=== PATIENT | male | born 1980 | race African-American/Black ===

== ENCOUNTER 2017-04-08 13:10 | Emergency (ER) | payer SELFPAY ==
[~2017-04-08] VITALS: Ht 185.4 cm; Wt 80.0 kg
[2017-04-08 13:23] VITALS: BP 137/72; PULSE 108; RESP 18; TEMP 99.1; O2SAT 100
[2017-04-08] MEDS ORDERED: DIPHTH/TETANUS/ACEL PERTUSSIS (BOOSTER) 0.5 ML VIAL/PFS IM ONE (13:30)
[2017-04-08] MEDS ORDERED: ceFAZolin 2 GM PREMIX 50 ML IV ONE (13:30)
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
[2017-04-08] MEDS ORDERED: ULTR50TA5 PO (14:09)
[2017-04-08] MEDS ORDERED: BACT800T5 PO (14:09)
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
== END 2017-04-08 15:34 | disposition home or self-care (01) ==
LOC: NEPC 13:10
DX: S41.131A Puncture wound without foreign body of right upper arm, initial encounter (principal); W34.00XA Accidental discharge from unspecified firearms or gun, initial encounter; Y92.512 Supermarket, store or market as the place of occurrence of the external cause; Z72.0 Tobacco use; Z23 Encounter for immunization
CPT/HCPCS: 73060; 90471; 90715; 96374; 99284; J0690